=== PATIENT | female | born 1990 | race Caucasian/White ===

== ENCOUNTER 2021-09-18 04:43 | Emergency (ER) | payer SELFPAY ==
[~2021-09-18] VITALS: Ht 167.6 cm; Wt 101.6 kg
--- NOTE | 2021-09-18 04:54 | NUR ---
Pt to ER w/ c/o cough x 2 weeks unresolved. Recent dx of bronchitis. Pt states covid negative at urgent care yesterday at [facility]. Pt states symptoms not resolving. Pt states dx of UTI yesterday. Current burning and throbbing to pelvic area 01/03. Pt ambulates withs evonne steady gait. Pt denies fever, body aches, chills.
[2021-09-18 04:56] VITALS: BP_SYST 114
--- NOTE | 2021-09-18 05:06 | NUR ---
Pt taken to room 6. Report given to Tessa MOTA
--- NOTE | 2021-09-18 05:41 | NUR ---
Dr. Szymanski at bedside with patient for evaluation.
[2021-09-18] MEDS ORDERED: PHENAZOPYRIDINE HCL 100 MG TABLET PO ONE (06:00)
[2021-09-18] MEDS ORDERED: LORATADINE 10 MG TABLET PO ONE (06:00)
[2021-09-18] MEDS ORDERED: LORA10TA7 PO ×2 (06:01)
[2021-09-18] MEDS ORDERED: CEFU250T85 PO (06:01)
[2021-09-18] MEDS ORDERED: FLUT16SP16 NS (06:01)
[2021-09-18] MEDS ORDERED: CETI10CA PO (06:03)
[2021-09-18] MEDS ORDERED: PHEN-890 PO (06:07)
--- NOTE | 2021-09-18 06:25 | NUR ---
Urine sample collected and walked over to lab.
--- NOTE | 2021-09-18 06:26 | NUR ---
0615- PT UP TO BATHROOM X2 FOR UA COLLECTION. WATER PO GIVEN FOR HYDRATION. NOT ABLE TO VOID YET AT THIS TIME. MEDS HELD UNTIL UA CULTURE OBTAINED. SUNSHINE SERNA INFORMED
[2021-09-18 06:40] LABS: BILIRUBIN,URINE NEGATIVE (NEGATIVE); CLARITY/URINE SL CLOUDY (CLEAR); COLOR,URINE YELLOW (YELLOW); GLUCOSE,URINE NEGATIVE (NEGATIVE); KETONES,URINE NEGATIVE (NEGATIVE); LEUKOCYTE ESTERASE ,URINE 1+ (NEGATIVE); NITRITE, URINE NEGATIVE (NEGATIVE); PH,URINE 6.5 (5.0-8.0); PROTEIN URINE NEGATIVE (NEGATIVE); UROBILINOGEN,URINE 0.2 (0.2-1.0)
[2021-09-18 06:41] LABS: BLOOD, URINE TRACE (NEGATIVE)
[2021-09-18 06:59] VITALS: BP_SYST 122
[2021-09-18 09:08] LABS: BACTERIA,URINE FEW /HPF (None Seen); WBC,URINE 20-50 /HPF (0-3)
== END 2021-09-18 06:59 | disposition home or self-care (01) ==
LOC: SED 04:43
DX: J06.9 Acute upper respiratory infection, unspecified (principal); Z79.899 Other long term (current) drug therapy
CPT/HCPCS: 81000; 87086; 99284